=== PATIENT | female | born 1985 ===

== ENCOUNTER 2017-06-01 18:54 | Inpatient (IN) | payer MEDICAID ==
[2017-06-01] MEDS ORDERED: Sodium Chloride 0.9% 500 ML IV ONE ×2 (21:06→21:12)
[2017-06-01] MEDS ORDERED: Sodium Chloride 0.9% 1,000 ML IV ONE (21:06)
--- NOTE | 2017-06-01 21:10 | C.PDOC ---
Chief Complaint (Nursing): Abdominal Pain Past Medical History Vital Signs: Last Vital Signs Temp 98.3 F 06/01/17 20:18 Pulse 79 06/01/17 20:18 Resp 18 06/01/17 20:18 BP 105/71 06/01/17 20:18 Pulse Ox 95 06/01/17 20:18 - Medical History PMH: Asthma - Social History Hx Alcohol Use: No Hx Substance Use: No - Immunization History Hx Tetanus Toxoid Vaccination: No Hx Influenza Vaccination: No Hx Pneumococcal Vaccination: No ED Course And Treatment O2 Sat by Pulse Oximetry: 95 Disposition - Disposition Referrals: Non [facility] Provider, [Primary Care Provider] -
--- NOTE | 2017-06-01 21:11 | C.PDOC ---
History Of Present Illness 31yo female, presents to ER today complaining of worsening abdominal pain, present intermittently for the past week. Patient states pain has worsened today prompting the visit. She also reports associated nausea, vomiting and diarrhea. She denies any other complaints. Chief Complaint (Nursing): Abdominal Pain History Per: Patient History/Exam Limitations: no limitations Onset/Duration Of Symptoms: Days, Intermittent Episodes Current Symptoms Are (Timing): Still Present Location Of Pain/Discomfort: Diffuse Quality Of Discomfort: "Pain" Abnormal Vaginal Bleeding: No Last Menstral Period: April 29 2017 Past Medical History Reviewed: Historical Data, Nursing Documentation, Vital Signs Vital Signs: Last Vital Signs Temp 98.3 F 06/01/17 20:18 Pulse 68 06/01/17 23:13 Resp 18 06/01/17 23:13 BP 108/68 06/01/17 23:13 Pulse Ox 98 06/01/17 23:13 - Medical History PMH: Asthma Surgical History: No Surg Hx Family History: States: No Known Family Hx - Social History Hx Alcohol Use: No Hx Substance Use: No - Immunization History Hx Tetanus Toxoid Vaccination: No Hx Influenza Vaccination: No Hx Pneumococcal Vaccination: No Review Of Systems Except As Marked, All Systems Reviewed And Found Negative. Constitutional: Negative for: Fever, Chills Gastrointestinal: Positive for: Nausea, Vomiting, Abdominal Pain, Diarrhea Physical Exam - Physical Exam Appears: Non-toxic, In Acute Distress (due to pain) Skin: Warm, Dry Head: Normacephalic Eye(s): bilateral: Normal Inspection Neck: Supple Chest: Symmetrical Cardiovascular: Rhythm Regular Respiratory: Normal Breath Sounds, No Wheezing Gastrointestinal/Abdominal: Bowel Sounds, Soft, Tenderness (diffuse, more present in left lower quadrant), No Guarding, No Rebound Back: Normal Inspection Extremity: Normal ROM Neurological/Psych: Oriented x3, Normal Speech, Normal Cognition ED Course And Treatment - Laboratory Results Result Diagrams: 06/01/17 21:41 06/01/17 21:41 O2 Sat by Pulse Oximetry: 95 (RA) Pulse Ox Interpretation: Normal Medical Decision Making Medical Decision Making: Impression: Abdominal pain x 1 week Plan: -- Labs -- IV Fluids -- Morphine 2mg IVP -- Zofran 4mg IVP Disposition Discussed With .: Lee James Doctor Will See Patient In The: Hospital Counseled Patient/Family Regarding: Diagnosis - Disposition Referrals: Non [facility] Provider, [Primary Care Provider] - Disposition: HOSPITALIZED Disposition Time: 03:53 Condition: STABLE Forms: [facility] (Spanish) - POA Present On Arrival: None - Clinical Impression Clinical Impression: Intussusception of small bowel - Scribe Statement The provider has reviewed the documentation as recorded by the Scribe (Lilibeth Maya) Provider Attestation: All medical record entries made by the Scribe were at my direction and personally dictated by me. I have reviewed the chart and agree that the record accurately reflects my personal performance of the history, physical exam, medical decision making, and the department course for this patient. I have also personally directed, reviewed, and agree with the discharge instructions and disposition.
[2017-06-01] MEDS ORDERED: Sodium Chloride 0.9% 1,000 ML ONE (21:12)
[2017-06-01 21:47] LABS: BASO # 0.1 K/uL (0.0-0.2); BASO % 0.6 % (0.0-2.0); EOS # 0.7 K/uL (0.0-0.7); EOS % 5.2 % (0.0-4.0); HEMOGLOBIN 12.7 g/dL (11.0-16.0); LYMPH # 4.4 K/uL (1.0-4.3); LYMPH % 34.6 % (20.0-40.0); MEAN CELL VOLUME 95.9 fL (81.0-99.0); MEAN CORPUSCULAR HEMOGLOBIN 31.5 pg (27.0-31.0); MEAN CORPUSCULAR HGB CONC 32.9 g/dL (33.0-37.0); MEAN PLATELET VOLUME 9.7 fL (7.2-11.7); MONO # 0.6 K/uL (0.0-0.8); MONO % 4.9 % (0.0-10.0); NEUT % 54.7 % (50.0-75.0); RBC 4.04 Mil/uL (3.80-5.20); RED CELL DISTRIBUTION WIDTH 13.3 % (11.5-14.5); WHITE BLOOD COUNT 12.7 K/uL (4.8-10.8)
[2017-06-01 21:58] LABS: SQUAMOUS EPITHIAL 1 /hpf (0-5); URINE BILIRUBIN NEGATIVE (NEGATIVE); URINE BLOOD NEGATIVE (NEGATIVE); URINE CLARITY Hazy (Clear); URINE COLOR Yellow (YELLOW); URINE GLUCOSE (UA) NORMAL (Normal); URINE LEUKOCYTE ESTERASE NEG Leu/uL (Negative); URINE NITRATE NEGATIVE (NEGATIVE); URINE PROTEIN NEGATIVE (NEGATIVE); URINE UROBILINOGEN NORMAL mg/dL (0.2-1.0)
[2017-06-01 22:01] LABS: HCG,QUALITATIVE URINE NEGATIVE (NEGATIVE)
[2017-06-01 22:03] LABS: ALB/GLOB RATIO 1.3 (1.0-2.1); ALBUMIN 3.9 g/dL (3.5-5.0)
[2017-06-01 22:24] LABS: ALT/SGPT 24 U/L (9-52); AST/SGOT 48 U/L (14-36); BLOOD UREA NITROGEN 10 mg/dL (7-17); CALCIUM 8.9 mg/dl (8.6-10.4); GFR AFRICAN-AMERICAN > 60; GFR NON-AFRICAN AMERICAN > 60; LIPASE 60 U/L (23-300)
[2017-06-01] MEDS ORDERED: Iohexol 240 (50 ml) PO ONE (23:38)
[2017-06-01] MEDS ORDERED: Iohexol 240 (50 ml) ONE (23:44)
[2017-06-02] MEDS ORDERED: Iodixanol 320 MG/ML 100 ML BOTTLE IV ONE (01:55)
--- NOTE | 2017-06-02 02:40 | CT ---
EXAM: CT Abdomen and Pelvis With Intravenous Contrast CLINICAL HISTORY: 31 years old, female; Pain; Abdominal pain; Additional info: Abd pain TECHNIQUE: Axial computed tomography images of the abdomen and pelvis with intravenous contrast. All CT scans at this facility use one or more dose reduction techniques, viz.: automated exposure control; ma/kV adjustment per patient size (including targeted exams where dose is matched to indication; i.e. head); or iterative reconstruction technique. Coronal and sagittal reformatted images were created and reviewed. CONTRAST: 100 mL of [id number] administered intravenously. COMPARISON: No relevant prior studies available. FINDINGS: Lower thorax: Minimal atelectasis. ABDOMEN: Liver: Unremarkable. No mass. Gallbladder and bile ducts: No calcified stones. No ductal dilation. Pancreas: No ductal dilation. No mass. Spleen: No splenomegaly. Adrenals: No mass. Kidneys and ureters: No mass. No hydronephrosis. Stomach and bowel: No definite mural thickening. Small bowel intussusception within left midabdomen. No obstruction. Appendix: Normal caliber. No inflammation. PELVIS: Bladder: Unremarkable. Reproductive: 1.4 x 1.3 x 1.0 cm peripherally enhancing hypodensity with crenulated margins within LEFT ovary. ABDOMEN and PELVIS: Intraperitoneal space: Trace free fluid within pelvis. No free air. Bones/joints: No acute fracture. Soft tissues: Unremarkable. Vasculature: Unremarkable. No aneurysm. Lymph nodes: No pathologically enlarged lymph nodes. IMPRESSION: 1. Involuting or ruptured LEFT ovarian follicle/cyst. 2. Small bowel intussusception. 3. Incidental/non-acute findings are described above.
[2017-06-02] MEDS ORDERED: Sodium Chloride 0.9% 2,000 ML ONE (04:42)
[2017-06-02] MEDS: Sodium Chloride 0.9% 1,000 ML IV SCH ×3 (04:47→22:39)
--- NOTE | 2017-06-02 05:14 | CP.PCM.HP ---
History of Present Illness - History of Present Illness History of Present Illness: Surgery H&P- Dr. James CC: Abdominal pain 31F w/ no relevant PMHx presents to [facility] ED w/ 1 week of mid-epigrastric crampy abdominal pain that had worsened yesterday w/ no instigating factors. Pain was unbearable and decided to come to the ER. Abdominal pain associated w/ nausea, non-bloody, non-bilious vomiting. Admits to passing flatus. No BM for one week, however patient states that is normal. Pt states subjective fevers, and diaphoretic. Denies: chills, shortness of breath, diarrhea, numbness/tingling in extremities , change in urinary habits, bright red blood per rectum PMH: denies PSH: denies ALL: NKDA SocialHx: smokes 5 cigarettes/day for 15 years, denies ETOH, social cannabis use , denies other recreational drug use FamilyHx: maternal grandmother + colon cancer Present on Admission - Present on Admission Any Indicators Present on Admission: No Review of Systems - Review of Systems All systems: reviewed and no additional remarkable complaints except - Constitutional Constitutional: As Per HPI Past Patient History - Infectious Disease Hx of Infectious Diseases: None - Past Social History Smoking Status: Light Smoker < 10 Cigarettes Daily - PULMONARY Hx Asthma: Yes - PSYCHIATRIC Hx Substance Use: No - SURGICAL HISTORY Hx Surgeries: No - ANESTHESIA Hx Anesthesia: No Meds Allergies/Adverse Reactions: Allergies Allergy/AdvReac Type Severity Reaction Status Date / Time No Known Allergies Allergy Unverified 06/01/17 20:17 Physical Exam - Constitutional Appears: Non-toxic, No Acute Distress Additional comments: sleeping comfortably upon encounter pt was disphoretic - Head Exam Head Exam: ATRAUMATIC - Eye Exam Eye Exam: EOMI. absent: Scleral icterus - ENT Exam ENT Exam: Mucous Membranes Moist - Respiratory Exam Respiratory Exam: NORMAL BREATHING PATTERN. absent: Accessory Muscle Use, Respiratory Distress - Cardiovascular Exam Cardiovascular Exam: Tachycardia, +S1, +S2. absent: Bradycardia - GI/Abdominal Exam GI & Abdominal Exam: Guarding, Soft, Tenderness. absent: Distended, Firm, Hernia, Mass, Rigid Additional comments: Voluntary guarding non-peritoneal tender to palpation in mid-epigastrium and LLQ - Rectal Exam Rectal Exam: Deferred - Extremities Exam Extremities exam: Positive for: normal inspection. Negative for: calf tenderness - Neurological Exam Neurological exam: Alert, Oriented x3 - Psychiatric Exam Psychiatric exam: Normal Affect - Skin Skin Exam: Intact, Warm Results - Vital Signs Recent Vital Signs: Last Vital Signs Temp 98.3 F 06/01/17 20:18 Pulse 103 H 06/02/17 04:27 Resp 18 06/02/17 04:27 BP 121/73 06/02/17 04:27 Pulse Ox 100 06/02/17 04:27 - Labs Result Diagrams: 06/01/17 21:41 06/01/17 21:41 Labs: Laboratory Results - last 24 hr 06/01/17 06/01/17 06/01/17 21:41 21:41 21:41 WBC 12.7 H RBC 4.04 Hgb 12.7 Hct 38.7 MCV 95.9 MCH 31.5 H MCHC 32.9 L RDW 13.3 Plt Count 300 MPV 9.7 Neut % (Auto) 54.7 Lymph % (Auto) 34.6 [place] % (Auto) 4.9 Eos % (Auto) 5.2 H Baso % (Auto) 0.6 Neut # (Auto) 7.0 Lymph # (Auto) 4.4 H [place] # (Auto) 0.6 Eos # (Auto) 0.7 Baso # (Auto) 0.1 Sodium 136 Potassium 3.6 Chloride 103 Carbon Dioxide 24 Anion Gap 12 BUN 10 Creatinine 0.7 Est GFR ( Amer) > 60 Est GFR (Non-Af Amer) > 60 Random Glucose 81 Calcium 8.9 Total Bilirubin 0.4 AST 48 H ALT 24 Alkaline Phosphatase 61 Total Protein 6.9 Albumin 3.9 Globulin 3.0 Albumin/Globulin Ratio 1.3 Lipase 60 Beta HCG, Quant Urine Color Yellow Urine Clarity Hazy Urine pH 5.0 Ur Specific [place] 1.021 Urine Protein Negative Urine Glucose (UA) Normal Urine Ketones Negative Urine Blood Negative Urine Nitrate Negative Urine Bilirubin Negative Urine Urobilinogen Normal Ur Leukocyte Esterase Neg Urine WBC (Auto) 1 Urine RBC (Auto) 1 Ur Squamous Epith Cells 1 Urine HCG, Qual Negative 06/02/17 01:11 WBC RBC Hgb Hct MCV MCH MCHC RDW Plt Count MPV Neut % (Auto) Lymph % (Auto) [place] % (Auto) Eos % (Auto) Baso % (Auto) Neut # (Auto) Lymph # (Auto) [place] # (Auto) Eos # (Auto) Baso # (Auto) Sodium Potassium Chloride Carbon Dioxide Anion Gap BUN Creatinine Est GFR ( Amer) Est GFR (Non-Af Amer) Random Glucose Calcium Total Bilirubin AST ALT Alkaline Phosphatase Total Protein Albumin Globulin Albumin/Globulin Ratio Lipase Beta HCG, Quant < 2.39 Urine Color Urine Clarity Urine pH Ur Specific [place] Urine Protein Urine Glucose (UA) Urine Ketones Urine Blood Urine Nitrate Urine Bilirubin Urine Urobilinogen Ur Leukocyte Esterase Urine WBC (Auto) Urine RBC (Auto) Ur Squamous Epith Cells Urine HCG, Qual Assessment & Plan - Assessment and Plan (Free Text) Assessment: 31F abd pain for 1 week; intussusception measuring about 1cm and ruptured ovarian cyst Plan: - NPO - IVF - Anti-emetic and analgesia PRN - serial abd exams - will attempt medical and conservative management at this time - discussed w/ Dr. James surgical attending Faisal Saavedra PGY1
--- NOTE | 2017-06-02 08:31 | RAD ---
HISTORY: pre-op COMPARISON: No prior. FINDINGS: LUNGS: No active pulmonary disease. PLEURA: No significant pleural effusion identified, no pneumothorax apparent. CARDIOVASCULAR: Normal. OSSEOUS STRUCTURES: No significant abnormalities. VISUALIZED UPPER ABDOMEN: Normal. OTHER FINDINGS: None. IMPRESSION: No active disease.
--- NOTE | 2017-06-02 11:57 | CP.PCM.CON ---
<NathanSammySheila - Last Filed: 06/02/17 17:00> History of Present Illness - History of Present Illness History of Present Illness: Patient is a 31 year old female with PMH asthma who presents complaining of abdominal pain, nausea, vomiting, and diarrhea. Patient says she has had these symptoms for 1 week and her last episode of diarrhea was Friday. Patient admits to small amount of blood streaking in her vomit. Upon admission patient was found to have intussusception on CT abdomen and pelvis, as well as ruptured left ovarian cyst. Medicine was consulted by surgery team for medical clearance for exploratory laparoscopy since patient was found to be bradycardic on EKG. Patient denies any symptoms such as lightheadedness, chest pain, SOB, weakness, palpitations, and changes in vision/hearing. PMH: asthma Meds: symbacort BID Allergies: NKDA PSH: denies FH: DM/HTN/HLD (grandmother), colon CA (Grandfather) SH: 1 PPD x10 years, drinks wine socially, denies drug use Review of Systems - Review of Systems All systems: reviewed and no additional remarkable complaints except (as per HPI ) Past Patient History - Infectious Disease Hx of Infectious Diseases: None - Past Social History Smoking Status: Light Smoker < 10 Cigarettes Daily - PULMONARY Hx Asthma: Yes - PSYCHIATRIC Hx Substance Use: No - SURGICAL HISTORY Hx Surgeries: No - ANESTHESIA Hx Anesthesia: No Meds Allergies/Adverse Reactions: Allergies Allergy/AdvReac Type Severity Reaction Status Date / Time No Known Allergies Allergy Unverified 06/01/17 20:17 - Medications Medications: Current Medications Acetaminophen (Tylenol 650 Mg Supp) 650 mg MS Q4 PRN PRN Reason: Fever >100.4 F Albuterol/Ipratropium (Duoneb 3 Mg/0.5 Mg (3 Ml) Ud) 3 ml INH RQ2 PRN PRN Reason: Shortness of Breath Hydromorphone HCl (Dilaudid) 0.5 mg IVP Q4H PRN PRN Reason: Pain, moderate (4-7) Last Admin: 06/02/17 11:12 Dose: 0.5 mg Sodium Chloride (Sodium Chloride 0.9%) 1,000 mls @ 100 mls/hr IV .Q10H TOMAS Last Admin: 06/02/17 05:45 Dose: 100 mls/hr Ondansetron HCl (Zofran Inj) 4 mg IVP Q4 PRN PRN Reason: Nausea/Vomiting Last Admin: 06/02/17 11:12 Dose: 4 mg Physical Exam - Constitutional Appears: Non-toxic, No Acute Distress - Head Exam Head Exam: NORMAL INSPECTION - Eye Exam Eye Exam: EOMI, Normal appearance, PERRL - ENT Exam ENT Exam: Mucous Membranes Moist - Neck Exam Neck exam: Positive for: Normal Inspection - Respiratory Exam Respiratory Exam: Clear to Auscultation Bilateral, NORMAL BREATHING PATTERN. absent: Accessory Muscle Use, Rales, Rhonchi, Wheezes, Respiratory Distress - Cardiovascular Exam Cardiovascular Exam: Bradycardia, REGULAR RHYTHM, +S1, +S2. absent: Diastolic murmur, Gallop, Rubs, Systolic Murmur - GI/Abdominal Exam GI & Abdominal Exam: Normal Bowel Sounds, Soft, Tenderness (LUQ and LLQ). absent: Distended - Extremities Exam Extremities exam: Positive for: normal inspection. Negative for: calf tenderness, pedal edema - Neurological Exam Neurological exam: Alert, Oriented x3 - Psychiatric Exam Psychiatric exam: Normal Affect, Normal Mood - Skin Skin Exam: Dry, Intact, Normal Color, Warm Results - Vital Signs Recent Vital Signs: Last Vital Signs Temp 97.7 F 06/02/17 09:54 Pulse 58 L 06/02/17 09:54 Resp 20 06/02/17 09:54 BP 103/70 06/02/17 09:54 Pulse Ox 99 06/02/17 09:54 - Labs Result Diagrams: 06/01/17 21:41 06/01/17 21:41 Labs: Laboratory Results - last 24 hr 06/01/17 06/01/17 06/01/17 21:41 21:41 21:41 WBC 12.7 H RBC 4.04 Hgb 12.7 Hct 38.7 MCV 95.9 MCH 31.5 H MCHC 32.9 L RDW 13.3 Plt Count 300 MPV 9.7 Neut % (Auto) 54.7 Lymph % (Auto) 34.6 [place] % (Auto) 4.9 Eos % (Auto) 5.2 H Baso % (Auto) 0.6 Neut # (Auto) 7.0 Lymph # (Auto) 4.4 H [place] # (Auto) 0.6 Eos # (Auto) 0.7 Baso # (Auto) 0.1 Sodium 136 Potassium 3.6 Chloride 103 Carbon Dioxide 24 Anion Gap 12 BUN 10 Creatinine 0.7 Est GFR ( Amer) > 60 Est GFR (Non-Af Amer) > 60 Random Glucose 81 Calcium 8.9 Total Bilirubin 0.4 AST 48 H ALT 24 Alkaline Phosphatase 61 Total Protein 6.9 Albumin 3.9 Globulin 3.0 Albumin/Globulin Ratio 1.3 Lipase 60 Beta HCG, Quant Urine Color Yellow Urine Clarity Hazy Urine pH 5.0 Ur Specific [place] 1.021 Urine Protein Negative Urine Glucose (UA) Normal Urine Ketones Negative Urine Blood Negative Urine Nitrate Negative Urine Bilirubin Negative Urine Urobilinogen Normal Ur Leukocyte Esterase Neg Urine WBC (Auto) 1 Urine RBC (Auto) 1 Ur Squamous Epith Cells 1 Urine HCG, Qual Negative 06/02/17 01:11 WBC RBC Hgb Hct MCV MCH MCHC RDW Plt Count MPV Neut % (Auto) Lymph % (Auto) [place] % (Auto) Eos % (Auto) Baso % (Auto) Neut # (Auto) Lymph # (Auto) [place] # (Auto) Eos # (Auto) Baso # (Auto) Sodium Potassium Chloride Carbon Dioxide Anion Gap BUN Creatinine Est GFR ( Amer) Est GFR (Non-Af Amer) Random Glucose Calcium Total Bilirubin AST ALT Alkaline Phosphatase Total Protein Albumin Globulin Albumin/Globulin Ratio Lipase Beta HCG, Quant < 2.39 Urine Color Urine Clarity Urine pH Ur Specific [place] Urine Protein Urine Glucose (UA) Urine Ketones Urine Blood Urine Nitrate Urine Bilirubin Urine Urobilinogen Ur Leukocyte Esterase Urine WBC (Auto) Urine RBC (Auto) Ur Squamous Epith Cells Urine HCG, Qual Assessment & Plan - Assessment and Plan (Free Text) Plan: Inussusception * CT abdomen pelvis: small bowel intussusception and ruptured left ovarian cyst * Dr. James (Primary) scheduled surgery for today (05/02/17) Bradycardia * Dr. Christine consulted * Spoke with him on the phone, he recommended echo and said patient was safe for surgery * f/u echo * CXR: No active disease * EKG showed sinus bradycardia with sinus arrythmia Asthma * Duonebs PRN <Juan Duffy - Last Filed: 06/02/17 19:08> Meds - Medications Medications: Current Medications Acetaminophen (Tylenol 650 Mg Supp) 650 mg MS Q4 PRN PRN Reason: Fever >100.4 F Albuterol/Ipratropium (Duoneb 3 Mg/0.5 Mg (3 Ml) Ud) 3 ml INH RQ2 PRN PRN Reason: Shortness of Breath Hydromorphone HCl (Dilaudid) 0.5 mg IVP Q3H PRN PRN Reason: Pain, moderate (4-7) Sodium Chloride (Sodium Chloride 0.9%) 1,000 mls @ 100 mls/hr IV .Q10H TOMAS Last Admin: 06/02/17 05:45 Dose: 100 mls/hr Cefazolin Sodium 1 gm/ Sodium (Chloride) 100 mls @ 100 mls/hr IVPB Q8H TOMAS Ondansetron HCl (Zofran Inj) 4 mg IVP Q4 PRN PRN Reason: Nausea/Vomiting Last Admin: 06/02/17 11:12 Dose: 4 mg Results - Vital Signs Recent Vital Signs: Last Vital Signs Temp 98.0 F 06/02/17 16:51 Pulse 58 L 06/02/17 16:51 Resp 20 06/02/17 16:51 BP 103/68 06/02/17 16:51 Pulse Ox 97 06/02/17 16:51 - Labs Result Diagrams: 06/01/17 21:41 06/01/17 21:41 Labs: Laboratory Results - last 24 hr 06/01/17 06/01/17 06/01/17 21:41 21:41 21:41 WBC 12.7 H RBC 4.04 Hgb 12.7 Hct 38.7 MCV 95.9 MCH 31.5 H MCHC 32.9 L RDW 13.3 Plt Count 300 MPV 9.7 Neut % (Auto) 54.7 Lymph % (Auto) 34.6 [place] % (Auto) 4.9 Eos % (Auto) 5.2 H Baso % (Auto) 0.6 Neut # (Auto) 7.0 Lymph # (Auto) 4.4 H [place] # (Auto) 0.6 Eos # (Auto) 0.7 Baso # (Auto) 0.1 Sodium 136 Potassium 3.6 Chloride 103 Carbon Dioxide 24 Anion Gap 12 BUN 10 Creatinine 0.7 Est GFR ( Amer) > 60 Est GFR (Non-Af Amer) > 60 Random Glucose 81 Calcium 8.9 Total Bilirubin 0.4 AST 48 H ALT 24 Alkaline Phosphatase 61 Total Protein 6.9 Albumin 3.9 Globulin 3.0 Albumin/Globulin Ratio 1.3 Lipase 60 Procalcitonin Beta HCG, Quant Urine Color Yellow Urine Clarity Hazy Urine pH 5.0 Ur Specific [place] 1.021 Urine Protein Negative Urine Glucose (UA) Normal Urine Ketones Negative Urine Blood Negative Urine Nitrate Negative Urine Bilirubin Negative Urine Urobilinogen Normal Ur Leukocyte Esterase Neg Urine WBC (Auto) 1 Urine RBC (Auto) 1 Ur Squamous Epith Cells 1 Urine HCG, Qual Negative 06/02/17 06/02/17 01:11 05:48 WBC RBC Hgb Hct MCV MCH MCHC RDW Plt Count MPV Neut % (Auto) Lymph % (Auto) [place] % (Auto) Eos % (Auto) Baso % (Auto) Neut # (Auto) Lymph # (Auto) [place] # (Auto) Eos # (Auto) Baso # (Auto) Sodium Potassium Chloride Carbon Dioxide Anion Gap BUN Creatinine Est GFR ( Amer) Est GFR (Non-Af Amer) Random Glucose Calcium Total Bilirubin AST ALT Alkaline Phosphatase Total Protein Albumin Globulin Albumin/Globulin Ratio Lipase Procalcitonin < 0.05 L Beta HCG, Quant < 2.39 Urine Color Urine Clarity Urine pH Ur Specific [place] Urine Protein Urine Glucose (UA) Urine Ketones Urine Blood Urine Nitrate Urine Bilirubin Urine Urobilinogen Ur Leukocyte Esterase Urine WBC (Auto) Urine RBC (Auto) Ur Squamous Epith Cells Urine HCG, Qual Attending/Attestation - Attestation I have personally seen and examined this patient.: Yes I have fully participated in the care of the patient.: Yes I have reviewed all pertinent clinical information: Yes Notes (Text): Seen and examined S/P bradycardia Patient is not symptomatic.EKG shows bradycardia with RBBB .Spoke to Dr Christine we will do echo.Patient cleared for surgery d/w the resident I agree with the documentation
[2017-06-02] MEDS ORDERED: Propofol 10 mg/ml Inj (20 ML) ONE (17:50)
[2017-06-02] MEDS ORDERED: Succinylcholine Chloride 20 mg/ml Syr (5 ml) IV ONE (17:51)
[2017-06-02] MEDS ORDERED: Rocuronium 10 mg/ml (5 ml) ONE (18:06)
--- NOTE | 2017-06-02 18:42 | CP.PCM.CON ---
History of Present Illness - History of Present Illness History of Present Illness: Patient with history of no significant medical history now with intestinal obstruction. Past Patient History - Infectious Disease Hx of Infectious Diseases: None - Past Medical History & Family History Past Medical History?: Yes - Past Social History Smoking Status: Light Smoker < 10 Cigarettes Daily - CARDIAC Hx Cardiac Disorders: No - PULMONARY Hx Asthma: Yes - NEUROLOGICAL Hx Neurological Disorder: No - HEENT Hx HEENT Problems: No - RENAL Hx Chronic Kidney Disease: No - ENDOCRINE/METABOLIC Hx Endocrine Disorders: No - HEMATOLOGICAL/ONCOLOGICAL Hx Blood Disorders: No - INTEGUMENTARY Hx Dermatological Problems: No - MUSCULOSKELETAL/RHEUMATOLOGICAL Hx Musculoskeletal Disorders: No Hx Falls: No - GASTROINTESTINAL Hx Gastrointestinal Disorders: No - GENITOURINARY/GYNECOLOGICAL Hx Genitourinary Disorders: No - PSYCHIATRIC Hx Substance Use: No - SURGICAL HISTORY Hx Surgeries: No - ANESTHESIA Hx Anesthesia: No Meds Allergies/Adverse Reactions: Allergies Allergy/AdvReac Type Severity Reaction Status Date / Time No Known Allergies Allergy Unverified 06/01/17 20:17 - Medications Medications: Current Medications Acetaminophen (Tylenol 650 Mg Supp) 650 mg [place] Q4 PRN PRN Reason: Fever >100.4 F Albuterol/Ipratropium (Duoneb 3 Mg/0.5 Mg (3 Ml) Ud) 3 ml INH RQ2 PRN PRN Reason: Shortness of Breath Hydromorphone HCl (Dilaudid) 0.5 mg IVP Q4H PRN PRN Reason: Pain, moderate (4-7) Last Admin: 06/02/17 15:57 Dose: 0.5 mg Sodium Chloride (Sodium Chloride 0.9%) 1,000 mls @ 100 mls/hr IV .Q10H TOMAS Last Admin: 06/02/17 05:45 Dose: 100 mls/hr Cefazolin Sodium 1 gm/ Sodium (Chloride) 100 mls @ 100 mls/hr IVPB Q8H TOMAS Ondansetron HCl (Zofran Inj) 4 mg IVP Q4 PRN PRN Reason: Nausea/Vomiting Last Admin: 06/02/17 11:12 Dose: 4 mg Physical Exam - Constitutional Appears: Non-toxic - Head Exam Head Exam: NORMOCEPHALIC - Neck Exam Neck exam: Positive for: Normal Inspection - Cardiovascular Exam Cardiovascular Exam: Bradycardia - GI/Abdominal Exam GI & Abdominal Exam: Diminished Bowel Sounds - Extremities Exam Extremities exam: Positive for: normal inspection - Neurological Exam Neurological exam: Alert, Oriented x3 Results - Vital Signs Recent Vital Signs: Last Vital Signs Temp 98.0 F 06/02/17 16:51 Pulse 58 L 06/02/17 16:51 Resp 20 06/02/17 16:51 BP 103/68 06/02/17 16:51 Pulse Ox 97 06/02/17 16:51 - Labs Result Diagrams: 06/03/17 07:55 06/03/17 07:55 Labs: Laboratory Results - last 24 hr 06/01/17 06/01/17 06/01/17 21:41 21:41 21:41 WBC 12.7 H RBC 4.04 Hgb 12.7 Hct 38.7 MCV 95.9 MCH 31.5 H MCHC 32.9 L RDW 13.3 Plt Count 300 MPV 9.7 Neut % (Auto) 54.7 Lymph % (Auto) 34.6 [place] % (Auto) 4.9 Eos % (Auto) 5.2 H Baso % (Auto) 0.6 Neut # (Auto) 7.0 Lymph # (Auto) 4.4 H [place] # (Auto) 0.6 Eos # (Auto) 0.7 Baso # (Auto) 0.1 Sodium 136 Potassium 3.6 Chloride 103 Carbon Dioxide 24 Anion Gap 12 BUN 10 Creatinine 0.7 Est GFR ( Amer) > 60 Est GFR (Non-Af Amer) > 60 Random Glucose 81 Calcium 8.9 Total Bilirubin 0.4 AST 48 H ALT 24 Alkaline Phosphatase 61 Total Protein 6.9 Albumin 3.9 Globulin 3.0 Albumin/Globulin Ratio 1.3 Lipase 60 Procalcitonin Beta HCG, Quant Urine Color Yellow Urine Clarity Hazy Urine pH 5.0 Ur Specific [place] 1.021 Urine Protein Negative Urine Glucose (UA) Normal Urine Ketones Negative Urine Blood Negative Urine Nitrate Negative Urine Bilirubin Negative Urine Urobilinogen Normal Ur Leukocyte Esterase Neg Urine WBC (Auto) 1 Urine RBC (Auto) 1 Ur Squamous Epith Cells 1 Urine HCG, Qual Negative 06/02/17 06/02/17 01:11 05:48 WBC RBC Hgb Hct MCV MCH MCHC RDW Plt Count MPV Neut % (Auto) Lymph % (Auto) [place] % (Auto) Eos % (Auto) Baso % (Auto) Neut # (Auto) Lymph # (Auto) [place] # (Auto) Eos # (Auto) Baso # (Auto) Sodium Potassium Chloride Carbon Dioxide Anion Gap BUN Creatinine Est GFR ( Amer) Est GFR (Non-Af Amer) Random Glucose Calcium Total Bilirubin AST ALT Alkaline Phosphatase Total Protein Albumin Globulin Albumin/Globulin Ratio Lipase Procalcitonin < 0.05 L Beta HCG, Quant < 2.39 Urine Color Urine Clarity Urine pH Ur Specific [place] Urine Protein Urine Glucose (UA) Urine Ketones Urine Blood Urine Nitrate Urine Bilirubin Urine Urobilinogen Ur Leukocyte Esterase Urine WBC (Auto) Urine RBC (Auto) Ur Squamous Epith Cells Urine HCG, Qual Assessment & Plan (1) Bradycardia Assessment and Plan: Sinus bradycardia most likely not significant. Post op monitor. Maintain electrolyte balance. Status: Acute - Assessment and Plan (Free Text) Assessment: Post -op monitoring.
[2017-06-02] MEDS ORDERED: Neostigmine Methylsulfate 3mg/3ml Syringe IV ONE (18:49)
--- NOTE | 2017-06-02 18:56 | PCM.SURG1 ---
Surgeon's Initial Post Op Note - Surgeon's Notes Surgeon: Lee James MD Cashier Wrapper: Lion Gomez PGY-4; Haylee Garcia PGY-1; [place] [facility] [place] Type of Anesthesia: General Endo Pre-Operative Diagnosis: abdominal pain, possible intussusception Operative Findings: See op report Post-Operative Diagnosis: No intussusception, no masses noted, no bowel abnormalities Operation Performed: Diagnostic laparoscopy, no intussusception noted, ovarian cyst, small amount of pelvic fluid Specimen/Specimens Removed: None Estimated Blood Loss: EBL {In ML}: 5 Blood Products Given: N/A Drains Used: No Drains Post-Op Condition: Good Date of Surgery/Procedure: 06/02/17 Time of Surgery/Procedure: 18:56
[2017-06-02] MEDS ORDERED: ceFAZolin IV 1 gm in Dextrose 1 GM/50 ML BAG IVPB SCH (19:00)
[2017-06-02] MEDS ORDERED: ceFAZolin 1 GM in Sodium Chloride 0.9% 100 ML IVPB SCH (19:00)
[2017-06-02] MEDS ORDERED: HYDROmorphone 0.5 mg/0.5 ml ISec IVP PRN (19:12)
[2017-06-02] MEDS ORDERED: Sodium Chloride 0.9% 1,000 ML IV ONE (19:45)
[2017-06-03 01:21] VITALS: RESP 20
[2017-06-03] MEDS: Sodium Chloride 0.9% 1,000 ML IV SCH ×3 (01:33→11:22)
[2017-06-03] MEDS: Albuterol-Ipratrop 3 mg / 0.5 (3 ml) UD INH PRN ×2 (07:40→14:17)
--- NOTE | 2017-06-03 07:41 | CP.PCM.PN ---
Subjective - Date & Time of Evaluation Date of Evaluation: 06/03/17 Time of Evaluation: 06:45 - Subjective Subjective: General surgery progress note for Dr. Gera Garcia, PGY-1 Pt S & E at bedside. Pt reports emesis x 2 overnight, did not tolerate diet. Ab pain improved. Denies F & C, BM, flatus. Objective - Vital Signs/Intake and Output Vital Signs (last 24 hours): Temp Pulse Resp BP Pulse Ox 98.3 F 72 20 118/81 97 06/03/17 01:00 06/03/17 04:03 06/03/17 04:03 06/03/17 04:03 06/03/17 04:03 Intake and Output: 06/03/17 06/03/17 06:59 18:59 Intake Total 1115 Balance 1115 - Medications Medications: Current Medications Acetaminophen (Tylenol 650 Mg Supp) 650 mg [place] Q4 PRN PRN Reason: Fever >100.4 F Albuterol/Ipratropium (Duoneb 3 Mg/0.5 Mg (3 Ml) Ud) 3 ml INH RQ2 PRN PRN Reason: Shortness of Breath Hydromorphone HCl (Dilaudid) 0.5 mg IVP Q3H PRN PRN Reason: Pain, moderate (4-7) Last Admin: 06/03/17 04:13 Dose: 0.5 mg Sodium Chloride (Sodium Chloride 0.9%) 1,000 mls @ 100 mls/hr IV .Q10H TOMAS Last Admin: 06/03/17 04:14 Dose: 100 mls/hr Ondansetron HCl (Zofran Inj) 4 mg IVP Q4 PRN PRN Reason: Nausea/Vomiting Last Admin: 06/02/17 11:12 Dose: 4 mg - Labs Labs: 06/01/17 21:41 06/01/17 21:41 - Constitutional Appears: Non-toxic, No Acute Distress - Head Exam Head Exam: ATRAUMATIC, NORMAL INSPECTION, NORMOCEPHALIC - Eye Exam Eye Exam: EOMI, Normal appearance - ENT Exam ENT Exam: Mucous Membranes Moist, Normal Exam - Neck Exam Neck Exam: Full ROM, Normal Inspection - Respiratory Exam Respiratory Exam: NORMAL BREATHING PATTERN - Cardiovascular Exam Cardiovascular Exam: REGULAR RHYTHM, +S1, +S2 - GI/Abdominal Exam GI & Abdominal Exam: Soft, Tenderness (mild,over incision sites). absent: Distended, Firm, Guarding, Rebound Additional comments: Incision sites with dressing in place- clean/dry/intact - Extremities Exam Extremities Exam: Normal Inspection - Neurological Exam Neurological Exam: Alert, Awake, CN II-XII Intact, Oriented x3 - Psychiatric Exam Psychiatric exam: Normal Affect, Normal Mood - Skin Skin Exam: Dry, Intact, Normal Color, Warm Additional comments: see ab exam for skin findings Assessment and Plan - Assessment and Plan (Free Text) Assessment: 31F POD#1 s/p diagnostic laparoscopy without any abnormal findings Plan: Encourage IS use Ambulate Anti-emetic PRN Encouraged non carbonated fluid intake Pain control Monitor for bowel function Will JAZMINE attending Radha, PGY-1
--- NOTE | 2017-06-03 08:02 | CP.PCM.DIS ---
Provider - Provider Date of Admission: 06/02/17 03:54 Attending physician: Lee James MD Primary care physician: Non [facility] Provider Dr Lee James Consults: None Time Spent in preparation of Discharge (in minutes): 35 Diagnosis - Discharge Diagnosis (1) S/P laparoscopy Status: Acute Hospital Course - Lab Results Lab Results: Most Recent Lab Values WBC 12.7 K/uL (4.8-10.8) H 06/01/17 21:41 RBC 4.04 Mil/uL (3.80-5.20) 06/01/17 21:41 Hgb 12.7 g/dL (11.0-16.0) 06/01/17 21:41 Hct 38.7 % (34.0-47.0) 06/01/17 21:41 MCV 95.9 fL (81.0-99.0) 06/01/17 21:41 MCH 31.5 pg (27.0-31.0) H 06/01/17 21:41 MCHC 32.9 g/dL (33.0-37.0) L 06/01/17 21:41 RDW 13.3 % (11.5-14.5) 06/01/17 21:41 Plt Count 300 K/uL (130-400) 06/01/17 21:41 MPV 9.7 fL (7.2-11.7) 06/01/17 21:41 Neut % (Auto) 54.7 % (50.0-75.0) 06/01/17 21:41 Lymph % (Auto) 34.6 % (20.0-40.0) 06/01/17 21:41 [place] % (Auto) 4.9 % (0.0-10.0) 06/01/17 21:41 Eos % (Auto) 5.2 % (0.0-4.0) H 06/01/17 21:41 Baso % (Auto) 0.6 % (0.0-2.0) 06/01/17 21:41 Neut # (Auto) 7.0 K/uL (1.8-7.0) 06/01/17 21:41 Lymph # (Auto) 4.4 K/uL (1.0-4.3) H 06/01/17 21:41 [place] # (Auto) 0.6 K/uL (0.0-0.8) 06/01/17 21:41 Eos # (Auto) 0.7 K/uL (0.0-0.7) 06/01/17 21:41 Baso # (Auto) 0.1 K/uL (0.0-0.2) 06/01/17 21:41 Sodium 136 mmol/L (132-148) 06/01/17 21:41 Potassium 3.6 mmol/L (3.6-5.2) 06/01/17 21:41 Chloride 103 mmol/L (98-107) 06/01/17 21:41 Carbon Dioxide 24 mmol/L (22-30) 06/01/17 21:41 Anion Gap 12 (10-20) 06/01/17 21:41 BUN 10 mg/dL (7-17) 06/01/17 21:41 Creatinine 0.7 mg/dL (0.7-1.2) 06/01/17 21:41 Est GFR ( Amer) > 60 06/01/17 21:41 Est GFR (Non-Af Amer) > 60 06/01/17 21:41 Random Glucose 81 mg/dL (65-105) 06/01/17 21:41 Calcium 8.9 mg/dl (8.6-10.4) 06/01/17 21:41 Total Bilirubin 0.4 mg/dL (0.2-1.3) 06/01/17 21:41 AST 48 U/L (14-36) H 06/01/17 21:41 ALT 24 U/L (9-52) 06/01/17 21:41 Alkaline Phosphatase 61 U/L (38-126) 06/01/17 21:41 Total Protein 6.9 g/dL (6.3-8.3) 06/01/17 21:41 Albumin 3.9 g/dL (3.5-5.0) 06/01/17 21:41 Globulin 3.0 gm/dL (2.2-3.9) 06/01/17 21:41 Albumin/Globulin Ratio 1.3 (1.0-2.1) 06/01/17 21:41 Lipase 60 U/L (23-300) 06/01/17 21:41 Procalcitonin < 0.05 NG/ML (0.19-0.49) L 06/02/17 05:48 Beta HCG, Quant < 2.39 mIU/ML 06/02/17 01:11 Urine Color Yellow (YELLOW) 06/01/17 21:41 Urine Clarity Hazy (Clear) 06/01/17 21:41 Urine pH 5.0 (5.0-8.0) 06/01/17 21:41 Ur Specific [place] 1.021 (1.003-1.030) 06/01/17 21:41 Urine Protein Negative mg/dL (NEGATIVE) 06/01/17 21:41 Urine Glucose (UA) Normal mg/dL (Normal) 06/01/17 21:41 Urine Ketones Negative mg/dL (NEGATIVE) 06/01/17 21:41 Urine Blood Negative (NEGATIVE) 06/01/17 21:41 Urine Nitrate Negative (NEGATIVE) 06/01/17 21:41 Urine Bilirubin Negative (NEGATIVE) 06/01/17 21:41 Urine Urobilinogen Normal mg/dL (0.2-1.0) 06/01/17 21:41 Ur Leukocyte Esterase Neg [place]/uL (Negative) 06/01/17 21:41 Urine WBC (Auto) 1 /hpf (0-5) 06/01/17 21:41 Urine RBC (Auto) 1 /hpf (0-3) 06/01/17 21:41 Ur Squamous Epith Cells 1 /hpf (0-5) 06/01/17 21:41 Urine HCG, Qual Negative (NEGATIVE) 06/01/17 21:41 - Hospital Course Hospital Course: Pt admitted to surgery for mid-epigastric abdominal pain w/nausea, nbnb emesis. Pt monitored, CT with findings of intussuception. Pt taken to OR for diagnostic laparoscopy on hospital day 1- no findings of intussusception, no masses, all bowel visualized and examined without any findings of abnormalities. Pt reported abdominal pain improved post op. Stable, will send home. Diagnoses Abdominal pain Diagnostic laparoscopy-no abnormalities noted - Date & Time of H&P Date of H&P: 06/02/17 Time of H&P: 05:09 Discharge Exam - Head Exam Head Exam: ATRAUMATIC, NORMAL INSPECTION, NORMOCEPHALIC - Eye Exam Eye Exam: EOMI, Normal appearance - ENT Exam ENT Exam: Mucous Membranes Moist, Normal Exam - Neck Exam Neck exam: Full Rom, Normal Inspection - Respiratory Exam Respiratory Exam: NORMAL BREATHING PATTERN, UNREMARKABLE - Cardiovascular Exam Cardiovascular Exam: REGULAR RHYTHM, +S1, +S2 - GI/Abdominal Exam GI & Abdominal Exam: Soft, Tenderness (minimally, over surgical incision sites- dressings clean/dry/intact). absent: Distended, Firm, Guarding, Hernia, Rebound - Extremities Exam Extremities exam: normal inspection - Neurological Exam Neurological exam: Alert, CN II-XII Intact, Oriented x3 - Psychiatric Exam Psychiatric exam: Normal Affect, Normal Mood - Skin Skin Exam: Dry, Intact, Normal Color, Warm Discharge Plan - Follow Up Plan Condition: STABLE Disposition: HOME/ ROUTINE Instructions: Acute Abdominal Pain (DC), Gas and Bloating (GEN) Additional Instructions: Please follow up with Dr. James as needed. OK to resume normal diet. You may remove the outer bandages tomorrow, until then keep them clean and dry. Under the bandages are special tape- this will fall off on it's ok, ok to shower with it washing gently with soap and water. Referrals: Non [facility] Provider, [Primary Care Provider] - Lee James MD [Staff Provider] -
[2017-06-03 08:23] LABS: BASO # 0.1 K/uL (0.0-0.2); BASO % 0.7 % (0.0-2.0); EOS # 0.4 K/uL (0.0-0.7); EOS % 3.1 % (0.0-4.0); HEMOGLOBIN 12.6 g/dL (11.0-16.0); LYMPH # 2.7 K/uL (1.0-4.3); LYMPH % 23.5 % (20.0-40.0); MEAN CORPUSCULAR HEMOGLOBIN 33.3 pg (27.0-31.0); MEAN CORPUSCULAR HGB CONC 34.6 g/dL (33.0-37.0); MEAN PLATELET VOLUME 9.9 fL (7.2-11.7); MONO # 0.5 K/uL (0.0-0.8); MONO % 4.7 % (0.0-10.0); NEUT # 7.8 K/uL (1.8-7.0); RBC 3.77 Mil/uL (3.80-5.20); RED CELL DISTRIBUTION WIDTH 12.9 % (11.5-14.5); WHITE BLOOD COUNT 11.5 K/uL (4.8-10.8)
[2017-06-03 08:46] LABS: ALB/GLOB RATIO 1.1 (1.0-2.1); ALBUMIN 3.2 g/dL (3.5-5.0); ALT/SGPT 27 U/L (9-52); AST/SGOT 22 U/L (14-36); BLOOD UREA NITROGEN 6 mg/dL (7-17); CALCIUM 8.1 mg/dl (8.6-10.4); GFR AFRICAN-AMERICAN > 60; GFR NON-AFRICAN AMERICAN > 60
--- NOTE | 2017-06-03 09:07 | CP.PCM.PN ---
<Sheila Evans - Last Filed: 06/03/17 09:04> Subjective - Date & Time of Evaluation Date of Evaluation: 06/03/17 Time of Evaluation: 07:00 - Subjective Subjective: Patient seen and examined at bedside. Patient resting comfortably in bed with no new complaints at this time. Patient still having some abdominal pain. Objective - Vital Signs/Intake and Output Vital Signs (last 24 hours): Temp Pulse Resp BP Pulse Ox 98.1 F 73 20 109/76 100 06/03/17 08:22 06/03/17 08:22 06/03/17 08:22 06/03/17 08:22 06/03/17 08:22 Intake and Output: 06/03/17 06/03/17 06:59 18:59 Intake Total 1115 Balance 1115 - Medications Medications: Current Medications Acetaminophen (Tylenol 650 Mg Supp) 650 mg [place] Q4 PRN PRN Reason: Fever >100.4 F Albuterol/Ipratropium (Duoneb 3 Mg/0.5 Mg (3 Ml) Ud) 3 ml INH RQ2 PRN PRN Reason: Shortness of Breath Hydromorphone HCl (Dilaudid) 0.5 mg IVP Q3H PRN PRN Reason: Pain, moderate (4-7) Last Admin: 06/03/17 04:13 Dose: 0.5 mg Sodium Chloride (Sodium Chloride 0.9%) 1,000 mls @ 100 mls/hr IV .Q10H TOMAS Last Admin: 06/03/17 04:14 Dose: 100 mls/hr Ondansetron HCl (Zofran Inj) 4 mg IVP Q4 PRN PRN Reason: Nausea/Vomiting Last Admin: 06/02/17 11:12 Dose: 4 mg - Labs Labs: 06/03/17 07:55 06/03/17 07:55 - Additional Findings Additional findings: - Constitutional Appears: Non-toxic, No Acute Distress - Head Exam Head Exam: NORMAL INSPECTION - Eye Exam Eye Exam: EOMI, Normal appearance, PERRL - ENT Exam ENT Exam: Mucous Membranes Moist - Neck Exam Neck exam: Positive for: Normal Inspection - Respiratory Exam Respiratory Exam: Clear to Auscultation Bilateral, NORMAL BREATHING PATTERN. absent: Accessory Muscle Use, Rales, Rhonchi, Wheezes, Respiratory Distress - Cardiovascular Exam Cardiovascular Exam: Bradycardia, REGULAR RHYTHM, +S1, +S2. absent: Diastolic murmur, Gallop, Rubs, Systolic Murmur - GI/Abdominal Exam GI & Abdominal Exam: Normal Bowel Sounds, Soft, Tenderness (LUQ and LLQ). absent: Distended Bandages from surgery c/d/i - Extremities Exam Extremities exam: Positive for: normal inspection. Negative for: calf tenderness, pedal edema - Neurological Exam Neurological exam: Alert, Oriented x3 - Psychiatric Exam Psychiatric exam: Normal Affect, Normal Mood - Skin Skin Exam: Dry, Intact, Normal Color, Warm Assessment and Plan - Assessment and Plan (Free Text) Plan: Inussusception * CT abdomen pelvis: small bowel intussusception and ruptured left ovarian cyst * Dr. James (Primary) took to OR yesterday (05/02/17) - further management per primary team Bradycardia * Dr. Christine consulted * f/u echo * CXR: No active disease * EKG showed sinus bradycardia with sinus arrythmia Asthma * Duonebs PRN Patient stable from a medical perspective. Please reconsult as needed. <Juan Duffy - Last Filed: 06/03/17 16:36> Objective - Vital Signs/Intake and Output Vital Signs (last 24 hours): Temp Pulse Resp BP Pulse Ox 98.1 F 73 20 109/76 100 06/03/17 08:22 06/03/17 08:22 06/03/17 08:22 06/03/17 08:22 06/03/17 08:22 Intake and Output: 06/03/17 06/03/17 06:59 18:59 Intake Total 1115 Balance 1115 - Medications Medications: Current Medications Acetaminophen (Tylenol 650 Mg Supp) 650 mg [place] Q4 PRN PRN Reason: Fever >100.4 F Albuterol/Ipratropium (Duoneb 3 Mg/0.5 Mg (3 Ml) Ud) 3 ml INH RQ2 PRN PRN Reason: Shortness of Breath Last Admin: 06/03/17 14:17 Dose: 3 ml Hydromorphone HCl (Dilaudid) 0.5 mg IVP Q3H PRN PRN Reason: Pain, moderate (4-7) Last Admin: 06/03/17 14:32 Dose: 0.5 mg Sodium Chloride (Sodium Chloride 0.9%) 1,000 mls @ 100 mls/hr IV .Q10H TOMAS Last Admin: 06/03/17 11:22 Dose: Not Given Ondansetron HCl (Zofran Inj) 4 mg IVP Q4 PRN PRN Reason: Nausea/Vomiting Last Admin: 06/03/17 11:16 Dose: 4 mg - Labs Labs: 06/03/17 07:55 06/03/17 07:55 Attending/Attestation - Attestation I have personally seen and examined this patient.: Yes I have fully participated in the care of the patient.: Yes I have reviewed all pertinent clinical information, including history, physical exam and plan: Yes Notes (Text): Patient was seen and examined No chaet pain,no shortness of breath patient has abdominal pain s/p surgery we will sign off. follow Echo and cardio
--- NOTE | 2017-06-03 09:24 | CARD ---
APPROVED REPORT EXAM: Two-dimensional and M-mode echocardiogram with Doppler and color Doppler. Other Information Quality : AverageRhythm : INDICATION Chest Pain 2D DIMENSIONS IVSd1.2 (0.7-1.1cm)LVDd4.4 (3.9-5.9cm) PWd0.9 (0.7-1.1cm)LVDs3.1 (2.5-4.0cm) FS (%) 28.0 %LVEF (%)54.5 (>50%) M-Mode DIMENSIONS Left Atrium (MM)3.68 (2.5-4.0cm)IVSd1.11 (0.7-1.1cm) Aortic Root2.80 (2.2-3.7cm)LVDd4.16 (4.0-5.6cm) Aortic Cusp Exc.2.02 (1.5-2.0cm)PWd1.20 (0.7-1.1cm) FS (%) 31 %LVDs2.86 (2.0-3.8cm) LVEF (%)59 (>50%) Mitral Valve MV E Mpyllacf562.9cm/sMV A Xswhjgsa89.3cm/sE/A ratio1.2 TDI E/Lateral E'0.0E/Medial E'0.0 Tricuspid Valve TR Peak Sqhpshrd278bh/sTR Peak Gr.[id number] LEFT VENTRICLE The left ventricle is normal size. There is normal left ventricular wall thickness. The left ventricular function is normal. The left ventricular ejection fraction is within the normal range. 65% No regional wall motion abnormalities noted. The left ventricular diastolic function is normal. No left ventricle thrombus noted on this study. There is no ventricular septal defect visualized. There is no left ventricular aneurysm. There is no mass noted in the left ventricle. RIGHT VENTRICLE The right ventricle is normal size. There is normal right ventricular wall thickness. The right ventricular systolic function is normal. ATRIA The left atrium size is normal. The right atrium size is normal. The interatrial septum is intact with no evidence for an atrial septal defect. AORTIC VALVE The aortic valve is normal in structure and function. No aortic regurgitation is present. There is no aortic valvular stenosis. There is no aortic valvular vegetation. MITRAL VALVE The mitral valve is normal in structure and function. There is no evidence of mitral valve prolapse. There is no mitral valve stenosis. There is no mitral valve regurgitation noted. TRICUSPID VALVE The tricuspid valve is normal in structure and function. There is mild tricuspid valve regurgitation noted. Estimated PA systolic pressure is 34 mm Hg. There is no tricuspid valve prolapse or vegetation. There is no tricuspid valve stenosis. PULMONIC VALVE The pulmonary valve is normal in structure and function. There is no pulmonic valvular regurgitation. There is no pulmonic valvular stenosis. GREAT VESSELS The aortic root is normal in size. The ascending aorta is normal in size. The pulmonary artery is normal. The IVC is normal in size and collapses >50% with inspiration. PERICARDIAL EFFUSION The pericardium appears normal. There is no pleural effusion. <Conclusion> Normal LV systolic function and doppler. Mild pulmonary HTN
[2017-06-03] MEDS: HYDROmorphone 0.5 mg/0.5 ml ISec IVP PRN ×3 (11:09→17:58)
[2017-06-03 16:17] LABS: SQUAMOUS EPITHIAL 8 /hpf (0-5); URINE BACTERIA RARE (<OCC); URINE BILIRUBIN NEGATIVE (NEGATIVE); URINE BLOOD NEGATIVE (NEGATIVE); URINE CLARITY Hazy (Clear); URINE COLOR Yellow (YELLOW); URINE GLUCOSE (UA) NORMAL (Normal); URINE LEUKOCYTE ESTERASE NEG Leu/uL (Negative); URINE NITRATE NEGATIVE (NEGATIVE); URINE PROTEIN NEGATIVE (NEGATIVE); URINE UROBILINOGEN NORMAL mg/dL (0.2-1.0)
--- NOTE | 2017-06-03 18:35 | CP.PCM.PN ---
Subjective - Date & Time of Evaluation Date of Evaluation: 06/03/17 Time of Evaluation: 18:33 - Subjective Subjective: denies any chsst pain or shortness of breath Objective - Vital Signs/Intake and Output Vital Signs (last 24 hours): Temp Pulse Resp BP Pulse Ox 98.1 F 67 20 112/78 98 06/03/17 16:40 06/03/17 16:40 06/03/17 16:40 06/03/17 16:40 06/03/17 16:40 Intake and Output: 06/03/17 06/03/17 06:59 18:59 Intake Total 1115 Balance 1115 - Medications Medications: Current Medications Acetaminophen (Tylenol 650 Mg Supp) 650 mg [place] Q4 PRN PRN Reason: Fever >100.4 F Albuterol/Ipratropium (Duoneb 3 Mg/0.5 Mg (3 Ml) Ud) 3 ml INH RQ2 PRN PRN Reason: Shortness of Breath Last Admin: 06/03/17 14:17 Dose: 3 ml Hydromorphone HCl (Dilaudid) 0.5 mg IVP Q3H PRN PRN Reason: Pain, moderate (4-7) Last Admin: 06/03/17 17:58 Dose: 0.5 mg Sodium Chloride (Sodium Chloride 0.9%) 1,000 mls @ 100 mls/hr IV .Q10H TOMAS Last Admin: 06/03/17 11:22 Dose: Not Given Ondansetron HCl (Zofran Inj) 4 mg IVP Q4 PRN PRN Reason: Nausea/Vomiting Last Admin: 06/03/17 11:16 Dose: 4 mg - Labs Labs: 06/03/17 07:55 06/03/17 07:55 - Head Exam Head Exam: NORMOCEPHALIC - Neck Exam Neck Exam: Normal Inspection - Respiratory Exam Respiratory Exam: NORMAL BREATHING PATTERN - Cardiovascular Exam Cardiovascular Exam: Bradycardia, REGULAR RHYTHM - Extremities Exam Extremities Exam: Normal Inspection - Neurological Exam Neurological Exam: Alert, Oriented x3 Assessment and Plan (1) Bradycardia Assessment & Plan: Stable, Post op no new issues. Maintain electrolyte balance. Status: Acute
--- NOTE | 2017-06-03 19:29 | OP ---
PROCEDURE DATE: 06/03/2017 PREOPERATIVE DIAGNOSIS: Abdominal pain, possible small bowel intussusception. POSTOPERATIVE DIAGNOSIS: Abdominal pain. PROCEDURE: Diagnostic laparoscopy. SURGEON: Lee James MD ASSISTANTS: Dr. Gomez and Dr. Garcia . TYPE OF ANESTHESIA: General. ANESTHESIA ADMINISTERED BY: Dr. Armstrong DESCRIPTION OF PROCEDURE: With the patient in the supine position under adequate general anesthesia, the abdomen was prepped and draped in the usual sterile manner. Veress needle puncture was performed in the umbilicus with insufflation to 15-cm water pressure of CO2, and a 5-mm laparoscopic trocar was inserted via an infraumbilical incision. Under direct vision, two additional 5 mm trocars were inserted in the left mid abdomen and the patient was positioned to allow the omentum to be displaced upward. The ligament of Treitz was identified and the small bowel was run from the ligament of Treitz to the terminal ileum as evidenced by visualizing the cecum and appendix. There was some mild distention of the very proximal portion of the jejunum just beyond the ligament of Treitz, but this appeared to be physiologic and there was no evidence of any intussusception as suspected from the CAT scan findings. The entire small bowel was run and no other abnormalities were identified. No areas of obstruction were identified and no areas of fixation. There were a few adhesions overlying the cecum, which were sharply lysed. The appendix was visualized. It appeared mildly elongated and possibly mildly dilated but with no evidence of any inflammation and examination of the pelvis revealed a small amount of yellow cloudy fluid adjacent to the left ovary which appeared to be physiologic follicular fluid. No other abnormalities were identified and the pneumoperitoneum was released and the trocars were removed. All incisions were closed with 4-0 Monocryl subcuticular sutures and Steri-Strips. Dry sterile dressings were applied. The patient tolerated the procedure well and transferred to the recovery room in stable condition. Estimated blood loss for the procedure was 5 mL. Lee James MD [facility] # [id number] [facility]
[2017-06-04] MEDS: HYDROmorphone 0.5 mg/0.5 ml ISec IVP PRN ×3 (00:20→06:43)
[2017-06-04 07:38] LABS: BASO # 0.1 K/uL (0.0-0.2); BASO % 1.1 % (0.0-2.0); EOS # 0.5 K/uL (0.0-0.7); EOS % 5.1 % (0.0-4.0); HEMOGLOBIN 12.5 g/dL (11.0-16.0); LYMPH # 3.2 K/uL (1.0-4.3); LYMPH % 32.8 % (20.0-40.0); MEAN CORPUSCULAR HEMOGLOBIN 32.9 pg (27.0-31.0); MEAN CORPUSCULAR HGB CONC 34.6 g/dL (33.0-37.0); MEAN PLATELET VOLUME 10.2 fL (7.2-11.7); MONO # 0.4 K/uL (0.0-0.8); MONO % 4.5 % (0.0-10.0); NEUT # 5.6 K/uL (1.8-7.0); NEUT % 56.5 % (50.0-75.0); RBC 3.8 Mil/uL (3.80-5.20); RED CELL DISTRIBUTION WIDTH 12.7 % (11.5-14.5); WHITE BLOOD COUNT 9.9 K/uL (4.8-10.8)
[2017-06-04 07:40] LABS: ALB/GLOB RATIO 1.2 (1.0-2.1); ALBUMIN 3.4 g/dL (3.5-5.0); ALT/SGPT 24 U/L (9-52); AST/SGOT 21 U/L (14-36); BLOOD UREA NITROGEN 6 mg/dL (7-17); CALCIUM 8.9 mg/dl (8.6-10.4); GFR AFRICAN-AMERICAN > 60; GFR NON-AFRICAN AMERICAN > 60
[2017-06-04] MEDS ORDERED: Magnesium Hydroxide Susp 30 ml UD PO ONE (15:14)
--- NOTE | 2017-06-04 16:03 | CP.PCM.PN ---
Subjective - Date & Time of Evaluation Date of Evaluation: 06/04/17 Time of Evaluation: 09:20 - Subjective Subjective: General surgery progress note for Dr. Gera Garcia, PGY-1 Pt S & E at bedside this AM. Pt stayed one more night due to emesis, abdominal pain. Pt requesting pain medications- asked for regular diet at dinner last night, but reports that she had some nausea with food intake. Objective - Vital Signs/Intake and Output Vital Signs (last 24 hours): Temp Pulse Resp BP Pulse Ox 98.2 F 84 20 125/81 98 06/04/17 08:21 06/04/17 08:21 06/04/17 08:21 06/04/17 08:21 06/04/17 08:21 Intake and Output: 06/04/17 06/04/17 06:59 18:59 Intake Total 900 680 Balance 900 680 - Medications Medications: Current Medications Acetaminophen (Tylenol 650 Mg Supp) 650 mg MO Q4 PRN PRN Reason: Fever >100.4 F Albuterol/Ipratropium (Duoneb 3 Mg/0.5 Mg (3 Ml) Ud) 3 ml INH RQ2 PRN PRN Reason: Shortness of Breath Last Admin: 06/03/17 14:17 Dose: 3 ml Sodium Chloride (Sodium Chloride 0.9%) 1,000 mls @ 100 mls/hr IV .Q10H TOMAS Last Admin: 06/03/17 11:22 Dose: Not Given Ketorolac Tromethamine (Toradol) 30 mg IVP Q6 PRN PRN Reason: Pain, moderate (4-7) Last Admin: 06/04/17 15:16 Dose: 30 mg Metoclopramide HCl (Reglan) 10 mg IVP ACHS TOMAS - Labs Labs: 06/04/17 07:11 06/04/17 07:11 - Constitutional Appears: Non-toxic, No Acute Distress - Head Exam Head Exam: ATRAUMATIC, NORMAL INSPECTION, NORMOCEPHALIC - Eye Exam Eye Exam: EOMI, Normal appearance - ENT Exam ENT Exam: Mucous Membranes Moist, Normal Exam - Neck Exam Neck Exam: Full ROM, Normal Inspection - Respiratory Exam Respiratory Exam: NORMAL BREATHING PATTERN - Cardiovascular Exam Cardiovascular Exam: REGULAR RHYTHM, +S1, +S2 - GI/Abdominal Exam GI & Abdominal Exam: Soft. absent: Distended, Firm, Guarding, Tenderness ( minimal) Additional comments: abdominal incisions with glue in place, no drainage or erythema - Neurological Exam Neurological Exam: Alert, Awake, CN II-XII Intact, Oriented x3 - Psychiatric Exam Psychiatric exam: Normal Affect, Normal Mood - Skin Skin Exam: Dry, Intact, Normal Color, Warm Assessment and Plan (1) S/P laparoscopy Status: Acute - Assessment and Plan (Free Text) Assessment: 31F POD#2 s/p Diagnostic laparoscopy with negative findings Plan: Ok to d/c home today as agreed by patient and attending Prescriptions in chart Pt to follow up with Dr. James as needed Ok to resume diet as tolerated DW attending Radha, PGY-1
--- NOTE | 2017-06-04 16:35 | CARD ---
APPROVED REPORT EKG Measurement Heart [id number] [place] 114P50 [id number] <Conclusion> Sinus bradycardia with sinus arrhythmia Low voltage QRS Borderline ECG
--- NOTE | 2017-06-04 16:45 | CARD ---
APPROVED REPORT EKG Measurement Heart [id number] IN 114P60 [id number] <Conclusion> Marked sinus bradycardia Possible Left atrial enlargement Incomplete right bundle branch block Abnormal ECG
[2017-06-04 16:56] VITALS: BP 117/78; PULSE 79; TEMP 98.6; O2SAT 97
== END 2017-06-04 17:18 | disposition home or self-care (01) | DRG 171 ==
LOC: SUPCPDRO 18:54 → C.ER 18:54 → C.9E 06-02 03:54 → C.3T 06-02 09:04
PROVIDERS: ADMIT Specialist; ATTEND Specialist
PROC: 0WJP4ZZ Inspection of Gastrointestinal Tract, Percutaneous Endoscopic Approach (ICD-10-PCS; principal; 2017-06-02 17:00)
DX: R10.13 Epigastric pain (principal); N83.292 Other ovarian cyst, left side; F17.210 Nicotine dependence, cigarettes, uncomplicated; I45.10 Unspecified right bundle-branch block; J45.909 Unspecified asthma, uncomplicated